=== PATIENT | female | born 1965 | race Caucasian/White ===

== ENCOUNTER 2017-12-02 14:59 | Emergency (ER) | payer SELFPAY ==
[2017-12-02] MEDS ORDERED: HYDROCODONE/APAP 7.5/325 MG TAB ONE (15:53)
--- NOTE | 2017-12-02 16:23 | RAD REPORT ---
EXAM DESCRIPTION: RAD - Ankle Left 3 View - 12/02/2017 4:05 pm CLINICAL HISTORY: PAIN COMPARISON: None FINDINGS: Left ankle and left foot, multiple projections are submitted. Prominent soft tissue swelling is seen along the lateral malleolus. Soft tissue swelling is seen juan jose g the dorsal aspect of the midfoot. Evidence of previous trauma is seen along the inferior medial mal leolus. Prominent calcaneal spurs are present. A subtle bony sliver is seen along the base second and third proximal metatarsals, which could indicate injury to the Lisfranc ligament. If pain persists o r progresses, advise follow-up nonemergent MR imaging of the left foot and ankle.
--- NOTE | 2017-12-02 17:26 | ER ---
Nurse's Notes [facility] Name: Akilah Torres Age: 51 yrs Sex: Female : 1965 Arrival Date: 12/02/2017 Time: 15:02 Bed 20 Private MD: Diagnosis: Unspecified sprain of left foot Presentation: 12/02 15:14 Presenting complaint: Patient states: L foot pain after hearing a popping noise earlier ss today. Transition of care: patient was not received from another setting of care. Onset of symptoms was December 02, 2017. Risk Assessment: Do you want to hurt yourself or someone else? Patient reports no desire to harm self or others. Initial Sepsis Screen: Does the patient meet any 2 criteria? HR > 90 bpm. Does the patient have a suspected source of infection? No. Patient's initial sepsis screen is negative. Care prior to arrival: None. 15:14 Method Of Arrival: Wheelchair ss 15:14 Acuity: ESTEFANÍA 4 ss Historical: - Allergies: 15:20 Aspirin; ss - Home Meds: 15:20 Metformin Oral [Active]; Lipitor Oral [Active]; Seroquel Oral [Active]; ss - PMHx: 15:20 Hypothyroidism; High Cholesterol; Diabetes - NIDDM; ss - PSHx: 15:20 None; ss - Immunization history:: Adult Immunizations up to date. - Social history:: Smoking status: Patient/guardian denies using tobacco. - Ebola Screening: : Patient denies exposure to infectious person Patient denies travel to an Ebola-affected area in the 21 days before illness onset. Screenin:07 Abuse screen: Denies threats or abuse. Denies injuries from another. Nutritional aj1 screening: No deficits noted. Tuberculosis screening: No symptoms or risk factors identified. Assessment: 16:07 General: Appears in no apparent distress. uncomfortable, Behavior is calm, cooperative, aj1 appropriate for age. Pain: Complains of pain in left foot Pain currently is 10 out of 10 on a pain scale. Neuro: Level of Consciousness is awake, alert, obeys commands. Cardiovascular: Patient's skin is warm and dry. Respiratory: Airway is patent Respiratory effort is even, unlabored, Respiratory pattern is regular, symmetrical. GI: No signs and/or symptoms were reported involving the gastrointestinal system. : No signs and/or symptoms were reported regarding the genitourinary system. EENT: No signs and/or symptoms were reported regarding the EENT system. Derm: No signs and/or symptoms reported regarding the dermatologic system. Skin is pink, warm \T\ dry. normal. Musculoskeletal: Range of motion: intact in all extremities. 17:05 Reassessment: Patient appears in no apparent distress at this time. No changes from aj1 previously documented assessment. Patient and/or family updated on plan of care and expected duration. Pain level reassessed. Patient is alert, oriented x 3, equal unlabored respirations, skin warm/dry/pink. 18:10 Reassessment: Patient appears in no apparent distress at this time. No changes from aj1 previously documented assessment. Patient and/or family updated on plan of care and expected duration. Pain level reassessed. Patient is alert, oriented x 3, equal unlabored respirations, skin warm/dry/pink. Vital Signs: 15:20 BP 130 / 82; Pulse 113; Resp 17; Pulse Ox 96% on R/A; Weight 136.08 kg; Height 5 ft. 6 ss in. (167.64 cm); Pain 10/10; 18:09 BP 135 / 75; Pulse 93; Resp 18; Pulse Ox 100% ; aj1 15:20 Body Mass Index 48.42 (136.08 kg, 167.64 cm) ss ED Course: 15:02 Patient arrived in ED. sb2 15:04 [facility] Zimmerman [facility]C [facility]. kb 15:04 Teofilo Shetty MD is Attending Physician. kb 15:18 Triage completed. ss 15:20 Arm band placed on right wrist. ss 15:46 Deepa Sol, RN is Primary Nurse. aj1 15:58 Foot Left 3 View XRAY In Process Unspecified. EDMS 15:58 Ankle Left 3 View XRAY In Process Unspecified. EDMS 15:59 X-ray completed. Portable x-ray completed in exam room. Patient tolerated procedure bb2 well. 16:07 Patient has correct armband on for positive identification. aj1 16:07 No provider procedures requiring assistance completed. aj1 17:30 Mike wrap to left ankle Orthoglass splint: Posterior short lleg splint applied on left jp3 leg. Administered Medications: 15:50 Drug: [place] (7.5 mg-325 mg) 1 tabs Route: PO; aj1 16:30 Follow up: Response: No adverse reaction aj1 Outcome: 17:25 Discharge ordered by . kb 18:10 Patient left the ED. aj1 Signatures: Dispatcher [employer] EDGregoria Schultz, SWETA HANP-Deepa Smith RN RN aj1 Brook Vincent RN RN ss Bambi Weiss bb2 Angie Fonseca sb2 Bobby Mock jp3
--- NOTE | 2017-12-02 17:26 | EDPHYS ---
Physician Documentation [facility] Name: Akilah Torres Age: 51 yrs Sex: Female : 1965 Arrival Date: 12/02/2017 Time: 15:02 Bed 20 Private MD: ED Physician Teofilo Shetty HPI: 12/02 17:24 This 51 yrs old Female presents to ER via Wheelchair with complaints of Fall kb Injury - FOOT. 17:24 Details of fall: The patient fell from an upright position, while walking, slipped in kb water. Onset: The symptoms/episode began/occurred just prior to arrival. Associated injuries: The patient sustained left foot, decreased range of motion, painful injury, swelling. Severity of symptoms: At their worst the symptoms were mild, moderate, in the emergency department the symptoms are unchanged. The patient has not experienced similar symptoms in the past. The patient has not recently seen a physician. Historical: - Allergies: 15:20 Aspirin; ss - Home Meds: 15:20 Metformin Oral [Active]; Lipitor Oral [Active]; Seroquel Oral [Active]; ss - PMHx: 15:20 Hypothyroidism; High Cholesterol; Diabetes - NIDDM; ss - PSHx: 15:20 None; ss - Immunization history:: Adult Immunizations up to date. - Social history:: Smoking status: Patient/guardian denies using tobacco. - Ebola Screening: : Patient denies exposure to infectious person Patient denies travel to an Ebola-affected area in the 21 days before illness onset. ROS: 17:23 Constitutional: Negative for fever, chills, and weight loss, Cardiovascular: Negative kb for chest pain, palpitations, and edema, Respiratory: Negative for shortness of breath, cough, wheezing, and pleuritic chest pain, Abdomen/GI: Negative for abdominal pain, nausea, vomiting, diarrhea, and constipation, Back: Negative for injury and pain, : Negative for injury, bleeding, discharge, and swelling, Skin: Negative for injury, rash, and discoloration, Neuro: Negative for headache, weakness, numbness, tingling, and seizure. 17:23 MS/extremity: Positive for injury or acute deformity, decreased range of motion, pain, swelling, tenderness, of the left foot. Exam: 17:23 Constitutional: This is a well developed, well nourished patient who is awake, alert, kb and in no acute distress. Head/Face: Normocephalic, atraumatic. Chest/axilla: Normal chest wall appearance and motion. Nontender with no deformity. No lesions are appreciated. Cardiovascular: Regular rate and rhythm with a normal S1 and S2. No gallops, murmurs, or rubs. Normal PMI, no JVD. No pulse deficits. Respiratory: Lungs have equal breath sounds bilaterally, clear to auscultation and percussion. No rales, rhonchi or wheezes noted. No increased work of breathing, no retractions or nasal flaring. Abdomen/GI: Soft, non-tender, with normal bowel sounds. No distension or tympany. No guarding or rebound. No evidence of tenderness throughout. Skin: Warm, dry with normal turgor. Normal color with no rashes, no lesions, and no evidence of cellulitis. Neuro: Awake and alert, GCS 15, oriented to person, place, time, and situation. Cranial nerves II-XII grossly intact. Motor strength 5/5 in all extremities. Sensory grossly intact. Cerebellar exam normal. Normal gait. 17:23 Musculoskeletal/extremity: Extremities: grossly normal except: noted in the left foot: decreased ROM, pain, swelling, tenderness, ROM: limited active range of motion due to pain, in the left foot, Circulation is intact in all extremities. Sensation intact. Weight bearing: can bear weight with assistance only. Vital Signs: 15:20 BP 130 / 82; Pulse 113; Resp 17; Pulse Ox 96% on R/A; Weight 136.08 kg; Height 5 ft. 6 ss in. (167.64 cm); Pain 10/10; 18:09 BP 135 / 75; Pulse 93; Resp 18; Pulse Ox 100% ; aj1 15:20 Body Mass Index 48.42 (136.08 kg, 167.64 cm) ss MDM: 15:13 Patient medically screened. kb 17:22 Data reviewed: vital signs, nurses notes. Data interpreted: Pulse oximetry: on room air kb is 96 %. Interpretation: normal. Counseling: I had a detailed discussion with the patient and/or guardian regarding: the historical points, exam findings, and any diagnostic results supporting the discharge/admit diagnosis, radiology results, the need for outpatient follow up, a family practitioner, to return to the emergency department if symptoms worsen or persist or if there are any questions or concerns that arise at home. 12/02 15:13 Order name: Foot Left 3 View XRAY kb 12/02 15:13 Order name: Ankle Left 3 View XRAY; Complete Time: 16:24 kb 12/02 17:20 Order name: Short Leg Splint; Complete Time: 17:33 kb Administered Medications: 15:50 Drug: [place] (7.5 mg-325 mg) 1 tabs Route: PO; aj1 16:30 Follow up: Response: No adverse reaction aj1 Disposition: 18:42 Co-signature as Attending Physician, Teofilo Shetty MD. ma2 Disposition: 12/02/17 17:25 Discharged to Home. Impression: Unspecified sprain of left foot. - Condition is Stable. - Discharge Instructions: Foot Sprain. - Prescriptions for Tramadol 50 mg Oral Tablet - take 1 tablet by ORAL route every 8 hours as needed; 12 tablet. - Medication Reconciliation Form, Thank You Letter, Antibiotic Education, Prescription Opioid Use form. - Follow up: Emergency Department; When: As needed; Reason: Worsening of condition. Follow up: Private Physician; When: 2 - 3 days; Reason: Recheck today's complaints, Continuance of care, Re-evaluation by your physician. Signatures: Dispatcher [employer] Gregoria Love, SWETA VIRAMONTES-Deepa Smith RN RN aj1 Brook Vincent RN RN Teofilo Shetty MD MD ma2 Corrections: (The following items were deleted from the chart) 18:10 17:25 12/02/2017 17:25 Discharged to Home. Impression: Unspecified sprain of left foot. aj1 Condition is Stable. Forms are Medication Reconciliation Form, Thank You Letter, Antibiotic Education, Prescription Opioid Use. Follow up: Emergency Department; When: As needed; Reason: Worsening of condition. Follow up: Private Physician; When: 2 - 3 days; Reason: Recheck today's complaints, Continuance of care, Re-evaluation by your physician. kb
[2017-12-02 18:16] VITALS: BP 135/75; O2SAT 100
--- NOTE | 2017-12-03 09:52 | RAD REPORT ---
EXAM DESCRIPTION: RAD - Foot Left 3 View - 12/02/2017 4:05 pm CLINICAL HISTORY: PAIN COMPARISON: None FINDINGS: Left ankle and left foot, multiple projections are submitted. Prominent soft tissue swelling is seen along the lateral malleolus. Soft tissue swelling is seen juan jose g the dorsal aspect of the midfoot. Evidence of previous trauma is seen along the inferior medial mal leolus. Prominent calcaneal spurs are present. A subtle bony sliver is seen along the base second and third proximal metatarsals, which could indicate injury to the Lisfranc ligament. If pain persists o r progresses, advise follow-up non-emergent MR imaging of the left foot and ankle.
== END 2017-12-02 18:10 | disposition home or self-care (01) ==
LOC: ER 14:59
DX: S93.602A Unspecified sprain of left foot, initial encounter (principal); W01.0XXA Fall on same level from slipping, tripping and stumbling without subsequent striking against object, initial encounter; Y93.01 Activity, walking, marching and hiking; Y92.9 Unspecified place or not applicable; Z88.6 Allergy status to analgesic agent; E11.9 Type 2 diabetes mellitus without complications; E78.00 Pure hypercholesterolemia, unspecified; E03.9 Hypothyroidism, unspecified
CPT/HCPCS: 99283

== ENCOUNTER 2024-03-12 16:15 | Emergency (ER) | payer SELFPAY ==
[2024-03-12 17:23] LABS: Absolute Basophils 0.1 K/uL (0-0.5); Absolute Eosinophils 0.4 K/uL (0-0.5); Absolute Lymphocytes (CBC) 2.9 K/uL (0.7-4.9); Absolute Monocytes 0.7 K/uL (0.1-1.3); Absolute Neutrophil 4.4 K/uL (1.8-8.0); Eosinophils % 4.4 % (0-4.4); Hemoglobin 13.7 g/dL (12.0-15.0); Lymphocytes % 34.3 % (15.3-44.8); MCH 29.5 pg (27.0-35.0); MCHC 33.3 g/dL (32.0-36.0); MCV 88.7 fL (80-100); MPV 8.1 fL (7.6-11.3); Monocytes % 8.1 % (3.3-12.3); Neutrophils % 52.2 % (41.7-73.7); Platelets 302 thou/uL (152-406); RBC Red Blood Cell Count 4.63 M/uL (3.86-4.86); Red Cell Distribution Width 13.7 % (12.1-15.2)
[2024-03-12 17:24] LABS: PT Prothrombin Time 12.1 SECONDS (9.4-12.5); Protime INR 1.08
[2024-03-12 17:41] LABS: ALT/SGPT 22 U/L (13-56); AST/SGOT 16 U/L (15-37); Albumin 3.4 g/dL (3.4-5.0); Albumin/Globulin Ratio 0.8 (1.1-1.8); Alkaline Phosphatase 113 U/L (45-117); Anion Gap 8.7 mEq/L (5.0-15.0); BUN Blood Urea Nitrogen 13 mg/dL (7-18); Bicarbonate 27 mEq/L (21-32); Bilirubin Direct < 0.2 mg/dL (0-0.2); Bilirubin Indirect, Calculated 0.1 mg/dL (0.2-0.8); Bilirubin Total 0.3 mg/dL (0.2-1.0); Globulin 4.1 g/dL (2.3-3.5); Glomerular Filtration Rate 58 ml/min (=/>90); Glucose Level 114 mg/dL (74-106); Lipase 29 U/L (13-75); Magnesium 1.9 mg/dL (1.6-2.4); NT PRO-BNP 44 pg/mL (<125); Potassium 3.7 mEq/L (3.5-5.1); Protein, Total 7.5 g/dL (6.4-8.2); Sodium Level 140 mEq/L (136-145)
--- NOTE | 2024-03-12 17:41 | RAD REPORT ---
EXAM: Chest Single View HISTORY: COUGH COMPARISON: 06/25/2014 FINDINGS: LUNGS/PLEURA: The lungs are clear. No pleural effusions or pneumothorax. No pulmonary edema. MEDIASTINUM: The mediastinal silhouette is within normal limits. CARDIAC: Within normal limits. UPPER ABDOMEN: No significant abnormality. BONES: No acute fracture. LINES/TUBES/OTHER: N/A IMPRESSION: No evidence of acute cardiopulmonary disease.
[2024-03-12] MEDS ORDERED: LIDOCAINE VISCOUS 2% 10ML ORAL SOLN ONE (18:23)
[2024-03-12] MEDS ORDERED: PANTOPRAZOLE 40 MG INJ ONE (18:23)
[2024-03-12] MEDS ORDERED: MAGNES/ALUMIN/SIMET 30ML UCUP ONE (18:23)
--- NOTE | 2024-03-12 19:10 | RAD REPORT ---
EXAMINATION: CT ABDOMEN AND PELVIS WITH CONTRAST CLINICAL INDICATION: Female, 58 years old.ABD PAIN TECHNIQUE: CT abdomen and pelvis was performed, after the administration of IV contrast, [facility]. Axial, sagittal and coronal reconstructions were obtained. One or more of the following dose reduction techniques were used: Automated exposure control, adjustment of the mA and/o r kV according to patient size, and/or iterative reconstruction. Unless otherwise specified, incidental findings do not require dedicated imaging follow-up. [id number]. COMPARISON: No prior exam. FINDINGS: LOWER CHEST: The visualized lung bases are clear. LIVER: Hepatic steatosis. GALLBLADDER/BILE DUCT: No biliary ductal dilatation.? PANCREAS: No significant abnormality. SPLEEN: Normal size. No focal lesion. ADRENALS: Normal; no mass. KIDNEYS AND URETERS: Bilateral renal lesions which are either benign in appearance or too small to ac curately characterize but statistically benign. GASTROINTESTINAL TRACT: Stomach is non-dilated. Small bowel has normal course and caliber. No colonic wall thickening or pericolonic inflammatory changes. Normal appendix. PERITONEUM: No ascites. LYMPH NODES: No lymphadenopathy. ABDOMINAL AORTA AND OTHER VESSELS: Normal caliber aorta and IVC. URINARY BLADDER: Normal contour. REPRODUCTIVE ORGANS: No pathologic process MUSCULOSKELETAL: No acute or suspicious osseous abnormality. ADDITIONAL FINDINGS: None. IMPRESSION: No acute or significant abnormalities seen in the abdomen or pelvis. Hepatic steatosis. No appendicit is.
--- NOTE | 2024-03-12 19:19 | RAD REPORT ---
Abdomen Exam Limited: 03/12/2024 6:14 PM CLINICAL HISTORY: ABD PAIN STUDY: Limited right upper quadrant ultrasound of abdomen. COMPARISON: Same day CT FINDINGS: Liver: Within normal limits. Bile ducts: No intrahepatic or extrahepatic biliary ductal dilatation. Common bile duct measures 5 mm. Gallbladder: Normal. IMPRESSION: Unremarkable exam.
--- NOTE | 2024-03-12 20:42 | EDPHYS ---
Physician Documentation [facility] Name: Akilah Torres Age: 58 yrs Sex: Female : 1965 Arrival Date: 03/12/2024 Time: 16:15 Bed 4 Private MD: ED Physician Franklyn Bryson HPI: 03/12 18:39 This 58 yrs old Female presents to ER via Ambulatory with complaints of Not catia feeling well. 18:39 This 58 yrs old Female presents to ER via Ambulatory with complaints of Not catia feeling well. 18:39 The patient presents with abdominal pain in the upper abdomen. Onset: The catia symptoms/episode began/occurred just prior to arrival. feels bad , ate chili. Onset: The symptoms/episode began/occurred today. The symptoms do not radiate. Associated signs and symptoms: Pertinent positives: nausea. Modifying factors: The symptoms are alleviated by nothing, the symptoms are aggravated by nothing. Severity of symptoms: At their worst the symptoms were mild in the emergency department the symptoms have improved mildly. Historical: - Allergies: 16:44 Aspirin; iw - PMHx: 16:44 Diabetes - NIDDM; High Cholesterol; Hypothyroidism; iw - PSHx: 16:44 None; iw - Immunization history:: Adult Immunizations not up to date. - Infectious Disease History:: Denies. - Social history:: Smoking status: Patient/guardian denies using tobacco, but has a distant history of tobacco abuse. - Family history:: not pertinent. ROS: 18:39 Constitutional: Negative for fever, chills, and weight loss, Eyes: Negative for injury, catia pain, redness, and discharge, ENT: Negative for injury, pain, and discharge, Neck: Negative for injury, pain, and swelling, Cardiovascular: Negative for chest pain, palpitations, and edema, Respiratory: Negative for shortness of breath, cough, wheezing, and pleuritic chest pain, Back: Negative for injury and pain, : Negative for injury, bleeding, discharge, and swelling, MS/Extremity: Negative for injury and deformity, Skin: Negative for injury, rash, and discoloration, Neuro: Negative for headache, weakness, numbness, tingling, and seizure, Psych: Negative for depression, anxiety, suicide ideation, homicidal ideation, and hallucinations, Allergy/Immunology: Negative for hives, rash, and allergies, Endocrine: Negative for neck swelling, polydipsia, polyuria, polyphagia, and marked weight changes, Hematologic/Lymphatic: Negative for swollen nodes, abnormal bleeding, and unusual bruising, 18:39 Abdomen/GI: Positive for abdominal pain, nausea, of the umbilical area, right upper quadrant and left upper quadrant, Exam: 18:39 Constitutional: This is a well developed, well nourished patient who is awake, alert, catia and in no acute distress. Head/Face: Normocephalic, atraumatic. Eyes: Pupils equal round and reactive to light, extra-ocular motions intact. Lids and lashes normal. Conjunctiva and sclera are non-icteric and not injected. Cornea within normal limits. Periorbital areas with no swelling, redness, or edema. ENT: Nares patent. No nasal discharge, no septal abnormalities noted. Tympanic membranes are normal and external auditory canals are clear. Oropharynx with no redness, swelling, or masses, exudates, or evidence of obstruction, uvula midline. Mucous membranes moist. Neck: Trachea midline, no thyromegaly or masses palpated, and no cervical lymphadenopathy. Supple, full range of motion without nuchal rigidity, or vertebral point tenderness. No Meningismus. Chest/axilla: Normal chest wall appearance and motion. Nontender with no deformity. No lesions are appreciated. Cardiovascular: Regular rate and rhythm with a normal S1 and S2. No gallops, murmurs, or rubs. Normal PMI, no JVD. No pulse deficits. Respiratory: Lungs have equal breath sounds bilaterally, clear to auscultation and percussion. No rales, rhonchi or wheezes noted. No increased work of breathing, no retractions or nasal flaring. Back: No spinal tenderness. No costovertebral tenderness. Full range of motion. Skin: Warm, dry with normal turgor. Normal color with no rashes, no lesions, and no evidence of cellulitis. MS/ Extremity: Pulses equal, no cyanosis. Neurovascular intact. Full, normal range of motion., bilateral aka Neuro: Awake and alert, GCS 15, oriented to person, place, time, and situation. Cranial nerves II-XII grossly intact. Motor strength 5/5 in all extremities. Sensory grossly intact. Cerebellar exam normal. Normal gait. Psych: Awake, alert, with orientation to person, place and time. Behavior, mood, and affect are within normal limits. 18:39 ECG was reviewed by the Attending Physician. 18:39 Musculoskeletal/extremity: DVT Exam: No signs of deep vein thrombosis. no pain, no swelling, no tenderness, negative Homans' sign noted on exam, no appreciated bluish discoloration, no erythema, no increased warmth, Vital Signs: 16:43 BP 130 / 82; Pulse 89; Resp 19; Temp 98.6; Pulse Ox 98% on R/A; iw 20:57 BP 112 / 68; Pulse 74; Resp 17; Temp 98.2; Pulse Ox 98% ; Pain 7/10; bm8 20:57 Pain Scale: Adult bm8 [place] Coma Score: 20:57 Eye Response: spontaneous(4). Motor Response: obeys commands(6). Verbal Response: bm8 oriented(5). Total: 15. MDM: 16:52 Medical Screening Exam initiated catia 18:42 Differential Diagnosis altered mental status, sepsis, flu. Differential diagnosis: [facility] Cholelithiasis, gastritis, gastroesophageal reflux disease, non-specific abd pain, pancreatitis, Peptic Ulcer Disease, urinary tract infection. Data reviewed: vital signs, nurses notes, lab test result(s), EKG, radiologic studies, CT scan, plain films, ultrasound. Consideration of Admission/Observation Escalation of care including admission/observation considered. I considered the following discharge prescriptions or medication management in the emergency department Medications were administered in the Emergency Department. See MAR. Independent interpretation of the following test(s) in the Emergency Department EKG: See my EKG interpretation above. Test considered but Not performed: MRI: no mrcp. Care significantly affected by the following chronic conditions: Diabetes, Hypertension, Obesity, hypothyroid, high cholesterol. Counseling: I had a detailed discussion with the patient and/or guardian regarding the historical points, exam findings, and any diagnostic results supporting the discharge/admit diagnosis, lab results, radiology results, the need for outpatient follow up, for definitive care, 03/12 16:53 Order name: Basic Metabolic Panel; Complete Time: 18:09 [facility] 03/12 20:39 Interpretation: Normal except: CL 108; GLUC 114; CRE 1.10; GFR 58. cp 03/12 16:53 Order name: CBC with Diff; Complete Time: 18:09 [facility] 03/12 16:53 Order name: LFT's; Complete Time: 18:09 [facility] 03/12 20:40 Interpretation: Normal except: IBILI, CALC 0.1; GLOB 4.1; A/G 0.8. 03/12 16:53 Order name: Magnesium; Complete Time: 18:09 [facility] 03/12 16:53 Order name: NT PRO-BNP; Complete Time: 18:09 [facility] 03/12 16:53 Order name: PT-INR; Complete Time: 18:09 [facility] 03/12 16:53 Order name: Troponin HS; Complete Time: 18:09 [facility] 03/12 16:53 Order name: Lipase; Complete Time: 18:09 [facility] 03/12 18:33 Order name: Troponin High Sensitivity: 645pm; Complete Time: 20:38 [facility] 03/12 16:53 Order name: XRAY Chest (1 view); Complete Time: 18:09 [facility] 03/12 18:14 Order name: CT Abd/Pelvis - IV Contrast Only; Complete Time: 20:38 [facility] 03/12 20:39 Interpretation: Report reviewed. 03/12 18:14 Order name: US Abdomen Limited; Complete Time: 20:38 [facility] 03/12 20:39 Interpretation: Report reviewed. 03/12 16:53 Order name: EKG; Complete Time: 16:53 [facility] 03/12 18:33 Order name: EKpm; Complete Time: 18:34 [facility] 03/12 16:53 Order name: Cardiac monitoring; Complete Time: 17:15 [facility] 03/12 16:53 Order name: EKG - Nurse/Tech; Complete Time: 17:15 [facility] 03/12 16:53 Order name: IV Saline Lock; Complete Time: 17:15 [facility] 03/12 16:53 Order name: Labs collected and sent; Complete Time: 17:15 [facility] 03/12 16:53 Order name: O2 Per Protocol; Complete Time: 17:15 [facility] 03/12 16:53 Order name: O2 Sat Monitoring; Complete Time: 17:15 [facility] 03/12 18:33 Order name: EKG - Nurse/Tech; Complete Time: 20:28 [facility] EC:39 Rate is 85 beats/min. Rhythm is regular. QRS [place] is Normal. GA interval is normal. QRS catia interval is normal. QT interval is normal. No Q waves. T waves are Normal. No ST changes noted. Clinical impression: NSR w/ Non-specific ST/T Changes and No evidence of ischemia. Interpreted by me. Reviewed by me. Administered Medications: 18:20 CANCELLED (Physician Discretion): GI Cocktail with - (maaloxsuspension 30 ml, aa5 lidocaine mucous membrane liquid 2 % 20 ml, phenobarbital-avnrbandpf91 ml) PO once 18:27 Drug: Pantoprazole IVP 40 mg IVP once Route: IVP; Site: right antecubital; aa5 18:35 Follow up: Response: No adverse reaction aa5 18:27 Drug: GI Cocktail without - (Maalox PO 30 ml, Lidocaine Mucous Membrane 2 % 15 aa5 ml) PO once Route: PO; 19:01 Follow up: Response: No adverse reaction aa5 Disposition Summary: 03/12/24 20:42 Discharge Ordered Notes: Location: Home cp Problem: new cp Symptoms: have improved cp Condition: Stable cp Diagnosis - Epigastric abdominal tenderness cp - Nausea cp Followup: catia - With: Private Physician - When: 2 - 3 days - Reason: Recheck today's complaints, Continuance of care, Re-evaluation by your physician Followup: catia - With: Marie Jimenez MD - When: 2 - 3 days - Reason: Recheck today's complaints, Re-evaluation by your physician Discharge Instructions: - Discharge Summary Sheet catia - Abdominal Pain, Adult catia - Nausea, Adult catia - Abdominal Pain, Adult, [id number] catia Forms: - Medication Reconciliation Form cp - Antibiotic Education cp - Prescription Opioid Use cp - Patient Portal Instructions cp - Leadership Thank You Letter cp Prescriptions: - ondansetron 4 mg Oral Tablet,disintegrating - take 1 tablet ORAL route every 8 hours for 5 days prn nausea/ vomiting; 20 catia tablet; Refills: 0, Product Selection Permitted - Protonix 40 mg Oral Tablet - take 1 tablet ORAL route once daily; 30 tablet; Refills: 0, Product Selection catia Permitted - dicyclomine 20 mg Oral tablet - take 1 tablet ORAL route 4 times per day; 28 tablet; Refills: 0, Product catia Selection Permitted Signatures: Dispatcher [employer] Franklyn Gates MD MD cha Williams, Irene, RN RN iw Calderon, Audri, RN RN aa5 Franklyn Jett PA PA cp Corrections: (The following items were deleted from the chart) 18:20 18:14 GI Cocktail with - (Maalox PO 30 ml, Lidocaine Mucous Membrane 2 % 20 aa5 ml, Phenobarbital-Belladonna PO 10 ml) PO once ordered. catia
--- NOTE | 2024-03-12 20:42 | ER ---
Nurse's Notes [facility] Name: Akilah Torres Age: 58 yrs Sex: Female : 1965 Arrival Date: 03/12/2024 Time: 16:15 Bed 4 Private MD: Diagnosis: Epigastric abdominal tenderness;Nausea Presentation: 03/12 16:43 Chief complaint: Patient states: felt like her throat was closing up, felt pressure in iw her neck and shoulders and into her shoulder blades, lasted about an hour , still feels some burning pain down right side of neck. Coronavirus screen: At this time, the client does not indicate any symptoms associated with coronavirus-19. Ebola Screen: No symptoms or risks identified at this time. Initial Sepsis Screen: Does the patient meet any 2 criteria? No. Patient's initial sepsis screen is negative. Does the patient have a suspected source of infection? No. Patient's initial sepsis screen is negative. Risk Assessment: Do you want to hurt yourself or someone else? Patient reports no desire to harm self or others. Onset of symptoms was March 12, 2024. 16:43 Method Of Arrival: Ambulatory iw 16:43 Acuity: ESTEFANÍA 3 iw Historical: - Allergies: 16:44 Aspirin; iw - PMHx: 16:44 Diabetes - NIDDM; High Cholesterol; Hypothyroidism; iw - PSHx: 16:44 None; iw - Immunization history:: Adult Immunizations not up to date. - Infectious Disease History:: Denies. - Social history:: Smoking status: Patient/guardian denies using tobacco, but has a distant history of tobacco abuse. - Family history:: not pertinent. Screenin:00 [facility] ED Fall Risk Assessment (Adult) History of falling in the last 3 months, aa5 including since admission No falls in past 3 months (0 pts) Confusion or Disorientation No (0 pts) Intoxicated or Sedated No (0 pts) Impaired Gait No (0 pts) Mobility Assist Device Used No (0 pt) Altered Elimination No (0 pt) Score/Fall Risk Level 0 - 2 = Low Risk Oriented to surroundings, Maintained a safe environment, Educated pt \\T\\ family on fall prevention, incl call for assistance when getting out of bed. Abuse screen: Denies threats or abuse. Nutritional screening: No deficits noted. Tuberculosis screening: No symptoms or risk factors identified. Assessment: 17:00 General: Appears comfortable, Behavior is calm, cooperative. Pain: Complains of pain in aa5 epigastric area, right upper quadrant and left upper quadrant Pain does not radiate. Quality of pain is described as indigestion Is continuous. Neuro: Level of Consciousness is awake, alert, obeys commands, Oriented to person, place, time, situation. Cardiovascular: Heart tones S1 S2 present Rhythm is regular. Respiratory: Reports cough and runny nose "for a few days" Airway is patent Respiratory effort is even, unlabored, Respiratory pattern is regular, symmetrical. GI: Abdomen is round obese, Bowel sounds present X 4 quads. Abd is soft and non tender X 4 quads. Reports indigestion. : No signs and/or symptoms were reported regarding the genitourinary system. EENT: Reports ringing in right ear and left ear pressure to right ear . Derm: Skin is pink, warm \\T\\ dry. Musculoskeletal: Range of motion: intact in all extremities. 18:27 Reassessment: Patient is alert, oriented x 3, equal unlabored respirations, skin aa5 warm/dry/pink. 18:27 GI: Reports upper abdominal pain, indigestion. aa5 19:01 Reassessment: Patient is alert, oriented x 3, equal unlabored respirations, skin aa5 warm/dry/pink. Pt back from CT scan . 20:57 Reassessment: Patient appears in no apparent distress at this time. Patient and/or bm8 family updated on plan of care and expected duration. Pain level reassessed. Patient is alert, oriented x 3, equal unlabored respirations, skin warm/dry/pink. Patient states feeling better. Patient states symptoms have improved. Vital Signs: 16:43 BP 130 / 82; Pulse 89; Resp 19; Temp 98.6; Pulse Ox 98% on R/A; iw 20:57 BP 112 / 68; Pulse 74; Resp 17; Temp 98.2; Pulse Ox 98% ; Pain 7/10; bm8 20:57 Pain Scale: Adult bm8 [place] Coma Score: 20:57 Eye Response: spontaneous(4). Motor Response: obeys commands(6). Verbal Response: bm8 oriented(5). Total: 15. ED Course: 16:20 Patient arrived in ED. ra3 16:44 Triage completed. iw 16:45 Arm band placed on. iw 16:47 Thalia Putnam, STELLA is Primary Nurse. aa5 16:52 Franklyn Bryson MD is Attending Physician. catia 17:00 Patient has correct armband on for positive identification. Bed in low position. Call aa5 light in reach. Side rails up X2. Adult w/ patient. Client placed on continuous cardiac and pulse oximetry monitoring. NIBP monitoring applied. cardiac monitor technician on. Pulse ox on. NIBP on. 17:00 Initial lab(s) drawn, by me, sent to lab. Inserted saline lock: 20 gauge in right aa5 antecubital area, using aseptic technique. Blood collected. Flushed with 10 mL NS. 17:15 XRAY Chest (1 view) Sent. iw 17:39 XRAY Chest (1 view) In Process Unspecified. EDMS 18:55 CT Abd/Pelvis - IV Contrast Only In Process Unspecified. EDMS 19:00 Report given to STELLA Johnson and STELLA Davis. aa5 19:01 US Abdomen Limited In Process Unspecified. EDMS 19:42 Repeat lab(s) drawn. by me, sent to lab. kmf 19:42 EKG done, by ED staff, reviewed by Franklyn ALFARO. kmf 20:42 Marie Jimenez MD is Referral Physician. cp 20:57 Provided Education on: post er care. bm8 20:57 No provider procedures requiring assistance completed. IV discontinued, intact, bm8 bleeding controlled, No redness/swelling at site. Pressure dressing applied. Administered Medications: 18:20 CANCELLED (Physician Discretion): GI Cocktail with - (maaloxsuspension 30 ml, aa5 lidocaine mucous membrane liquid 2 % 20 ml, phenobarbital-wvyrodoaub95 ml) PO once 18:27 Drug: Pantoprazole IVP 40 mg IVP once Route: IVP; Site: right antecubital; aa5 18:35 Follow up: Response: No adverse reaction aa5 18:27 Drug: GI Cocktail without - (Maalox PO 30 ml, Lidocaine Mucous Membrane 2 % 15 aa5 ml) PO once Route: PO; 19:01 Follow up: Response: No adverse reaction aa5 Medication: 18:27 VIS not applicable for this client. aa5 Outcome: 20:42 Discharge ordered by . cp 20:57 Discharged to home ambulatory, bm8 20:57 Condition: stable 20:57 Discharge instructions given to patient, Instructed on discharge instructions, follow up and referral plans. no drinking with medication, no driving heavy equipment, medication usage, safety practices, Demonstrated understanding of instructions, follow-up care, medications, Prescriptions given X 3, 20:59 Patient left the ED. bm8 Signatures: Dispatcher [employer] EDMS Franklyn Bryson MD MD cha Williams, Irene, RN Thalia Nunez RN RN aa5 Franklyn Jett, PA Ashly Kasper cp [facility] Alesia Pearson ra3 Alex Pak RN RN bm8 Corrections: (The following items were deleted from the chart) 19:04 17:00 Respiratory: Airway is patent Respiratory effort is even, unlabored, Respiratory aa5 pattern is regular, symmetrical, aa5
[2024-03-12 21:06] VITALS: O2SAT 98
[2024-03-12 21:07] VITALS: BP 112/68; TEMP 98.2
--- NOTE | 2024-03-13 13:05 | EKG ---
Test Date: 2024-03-12 Test Time: 19:29:59 Senior Government Program Analyst: SAMEER MEASUREMENT RESULTS: Intervals: Rate: 75 OK: 158 QRSD: 152 QT: 446 QTc: 498 [place]: P: 43 OK: 158 QRS: -17 T: 36 INTERPRETIVE STATEMENTS: Normal sinus rhythm Right bundle branch block Abnormal ECG Compared to ECG 06/25/2014 11:53:01 Right bundle-branch block now present Electronically Signed On 03-13-24 13:03:47 MEDIA LAW FACULTY MEMBER by Ez Chambers
--- NOTE | 2024-03-13 13:05 | EKG ---
Test Date: 2024-03-12 Test Time: 16:48:56 Database Modeler: AR[place]IO MEASUREMENT RESULTS: Intervals: Rate: 85 NM: 148 QRSD: 148 QT: 436 QTc: 518 [place]: P: 38 NM: 148 QRS: -35 T: 40 INTERPRETIVE STATEMENTS: Normal sinus rhythm Left axis deviation Right bundle branch block Abnormal ECG Compared to ECG 06/25/2014 11:53:01 Left-axis deviation now present Right bundle-branch block now present Electronically Signed On 03-13-24 13:03:49 PRINTER MACHINE by Ez Chambers
== END 2024-03-12 20:59 | disposition home or self-care (01) ==
LOC: ER 16:15
DX: R10.13 Epigastric pain (principal); R11.0 Nausea; E11.9 Type 2 diabetes mellitus without complications; E78.00 Pure hypercholesterolemia, unspecified; E03.9 Hypothyroidism, unspecified
CPT/HCPCS: 36415; 71045; 74177; 76705; 80048; 80076; 83690; 83735; 83880; 84484; 85025; 85610; 93005; 96374; 99285; J2470; Q9967